=== PATIENT | male | born 1950 | race Caucasian/White ===

== ENCOUNTER 2019-04-23 10:14 | Inpatient (IN) | payer OTHER ==
[2019-04-23] VITALS (8 sets, daily range): BP systolic 110–131; BP diastolic 63–71
[~2019-04-23] VITALS: Ht 172.7 cm; Wt 83.7 kg
[2019-04-23 11:05] LABS: BASO % 0.4 % (0.0-1.0); EOS # 0.2 10*3/uL (0.0-0.4); HEMATOCRIT 43.2 % (42.0-52.0); HEMOGLOBIN 13.8 g/dl (14.0-18.0); LYMPH # 1.9 10*3/uL (1.3-4.4); LYMPH % 23.7 % (27.0-41.0); MEAN CELL VOLUME 92.5 fl (80.0-94.0); MEAN CORPUSCULAR HGB 29.6 pg (27.0-31.0); MEAN CORPUSCULAR HGB CONC 31.9 g/dl (33.0-37.0); MEAN PLATELET VOLUME 10.5 fl (9.6-12.3); MONO # 0.6 10*3/uL (0.1-1.0); NEUT # 5.2 10*3/uL (2.3-7.9); NEUT % 66.6 % (47.0-73.0); PLATELET COUNT AUTOMATED 217 10*3/uL (130-400); RED BLOOD COUNT 4.67 10*6/uL (4.50-5.90); WHITE BLOOD COUNT 7.8 10*3/uL (4.8-10.8)
[2019-04-23 11:15] LABS: ACT PARTIAL THROMBO TIME 29.6 SECONDS (20.0-32.1); INTERNATIONAL NORM RATIO 0.9 (2.0-3.5)
[2019-04-23 11:21] LABS: ALBUMIN 3.4 gm/dl (3.1-4.5); BUN 16 mg/dl (7-24); CHLORIDE 112 mmol/L (98-107); POTASSIUM 4.9 mmol/L (3.5-5.1); SGOT/AST 10 IU/L (3-35); SODIUM 144 mmol/L (136-145); TOTAL PROTEIN 6.7 gm/dL (6.4-8.2)
[2019-04-23 11:30] LABS: ALKALINE PHOSPHATASE 103 U/L (45-117); CREATININE 0.95 mg/dL (0.70-1.30); SGPT/ALT 20 U/L (12-78)
[2019-04-23 11:31] LABS: TROPONIN I < 0.015 ng/ml (<0.045)
--- NOTE | 2019-04-23 12:39 | NUR ---
SPOKE WITH PATIENT AND HIS SPOUSE TO LAB RESULTS SO FAR AND X-RAY RESULTS AND EXPLAINED TROPONIN RESULTS AND NEED FOR REPEAT IN APROX 1 HOUR AND THAT A 3RD TROPONIN MAY BE NEEDED 3 HOURS AFTER THAT DEPENDING ON PCP AND RESULTS PT GIVEN PILLOW AND FAMILY HAS NO OTHER QUESTIONS OR REQUESTS
--- NOTE | 2019-04-23 15:10 | NUR ---
'S OFFICE CALLED REGARDING CONSULT.
--- NOTE | 2019-04-23 15:10 | NUR ---
CCA 69, admitted to 5E, under the services of NGUYEN Samson DO with a diagnosis of CHEST PAIN. Chief complaint is CHEST PAIN. Patient arrived via ambulance from ER. Monitor applied. Initial assessment completed. Vital signs taken and recorded. NGUYEN SAMSON DO notified of admission to the unit. Orders received. See assessment for past medical history, medications and allergies. Patient and/or family oriented to unit. [address] visitation policy reviewed. Clothing/patient valuable form completed. CORI JANE.
--- NOTE | 2019-04-23 15:10 | NUR ---
PATIENT WAS TAKEN TO 5TH FLOOR BY THIS NURSE. BEDSIDE REPORT GIVEN TO CORI LONGO. NO CHANGE IN PATIENT STATUS.
--- NOTE | 2019-04-23 15:49 | NUR ---
IN TO SEE PATIENT.
--- NOTE | 2019-04-23 15:57 | NUR ---
[facility]ED [facility]ARDING [facility]. WAITING FOR FAXED LIST OF MEDS.
--- NOTE | 2019-04-23 17:06 | NUR ---
SPOKE WITH [facility] REGARDING [facility]. NEW POLICY IS TO FAX CONSENT FOR MEDS. CONSENT FAXED HERE AND OBTAINED PATIENTS SIGNATURE. ATTEMPTED TO FAX AUTHORIZATION [facility] TO [facility] AND FAX NOT GOING THROUGH. [facility] INFORMED AND STATES THE FAX MACHINE IS WORKING PROPERLY. WILL CONTINUE TO TRY. WAITING FOR FAXED LIST OF MEDS.
--- NOTE | 2019-04-23 17:10 | NUR ---
ATTEMPTED TO REACH PATIENT'S REGARDING HOME MED LIST. NO ANSWER AT THIS TIME. WILL TRY AGAIN.
--- NOTE | 2019-04-23 19:07 | NUR ---
AUTHORIZATION FOR MEDS FINALLY WENT THROUGH TO THE [facility]. AWAITING FAXED LIST OF MEDS.
--- NOTE | 2019-04-23 19:08 | NUR ---
24 HR CHART CHECK COMPLETE.
[2019-04-24] VITALS: BP 105/51
[2019-04-24 06:20] LABS: HEMATOCRIT 43.9 % (42.0-52.0); HEMOGLOBIN 14.1 g/dl (14.0-18.0); WHITE BLOOD COUNT 6.8 10*3/uL (4.8-10.8)
[2019-04-24 06:21] LABS: BASO % 0.4 % (0.0-1.0); EOS # 0.2 10*3/uL (0.0-0.4); EOS % 2.8 % (1.0-4.0); LYMPH # 1.9 10*3/uL (1.3-4.4); LYMPH % 27.8 % (27.0-41.0); MEAN CELL VOLUME 91.5 fl (80.0-94.0); MEAN CORPUSCULAR HGB 29.4 pg (27.0-31.0); MEAN CORPUSCULAR HGB CONC 32.1 g/dl (33.0-37.0); MEAN PLATELET VOLUME 10.5 fl (9.6-12.3); MONO # 0.6 10*3/uL (0.1-1.0); MONO % 8.2 % (3.0-9.0); NEUT # 4.1 10*3/uL (2.3-7.9); NEUT % 60.5 % (47.0-73.0); PLATELET COUNT AUTOMATED 232 10*3/uL (130-400); RED CELL DISTRI WIDTH 12.8 % (0-14.5)
[2019-04-24 06:31] LABS: ACT PARTIAL THROMBO TIME 29.9 SECONDS (20.0-32.1); INTERNATIONAL NORM RATIO 0.9 (2.0-3.5)
[2019-04-24 06:41] LABS: BUN 15 mg/dl (7-24); CHLORIDE 110 mmol/L (98-107); CHOLESTEROL 123 mg/dL (<200); CREATININE 0.86 mg/dL (0.70-1.30); FREE T4 2.29 ng/dl (0.76-1.46); HDL CHOLESTEROL 25 mg/dl (40-60); LDL CHOLESTEROL 56 mg/dL (9-159); PHOSPHOROUS 3.4 mg/dL (2.5-4.9); POTASSIUM 4.2 mmol/L (3.5-5.1); SODIUM 144 mmol/L (136-145); TRIGLYCERIDES 211 mg/dl (<150); VLDL CHOLESTEROL 42 mg/dL (6-40)
[2019-04-24 07:48] LABS: VITAMIN D, 25-HYDROXY 49.3 ng/mL (30-100)
--- NOTE | 2019-04-24 09:00 | NUR ---
INFORMED CONSENT OBTAINED FOR A LEXISCAN STRESS TEST WITH DR. JHAVERI. RESTING EKG NSR WITH A HT RT OF 73, AND BP OF 102/62. BREATH SOUNDS CLEAR RAHEEL, WIH A SPO2 OF 95% VIA RA. COMPLETED OME MINUTE OF A LEXISCAN PROTOCOL RECEIVING LEXISCAN O.4 MG OVER 10 SECONDS, C/O BEING "LIGHTHEADED" THAT WAS RELIEVED IN RECOVERY. HAD A PEAK HT RT OF 113, WITH A BP OF 92/60. LAST RECOVERY HT RT OF 105, WITH A BP OF 100/60. AWAITING NUCLEAR IMAGING IN STABLE CONDITION.
--- NOTE | 2019-04-24 09:39 | NUR ---
Shift chart check completed.
--- NOTE | 2019-04-24 09:42 | NUR ---
PT OFF OF FLOOR AT THIS TIME.
--- NOTE | 2019-04-24 10:03 | NUR ---
Patient not available for echo at this time.
--- NOTE | 2019-04-24 11:13 | NUR ---
Asphalt Mixer in to talk to patient. Patient states lives at HOME with . There are NO steps in the home. Physician: [facility], STATES GET[facility] ALL [facility]S [facility] Home health services: NONE Patient's level of ADLs: INDEPENDENT Patient has working utilities: YES DME: CPAP THROUGH [facility] Follow-up physician's appointment after d/c: WILL BE MADE BY HOSPITALIST NURSE DIRECTOR ON DISCHARGE Does patient want to access PORTAL?: NO Discharge plan PT STATES HE LIVES AT HOME WITH HIS AND IS INDPENDENT IN HIS CARE. DENIES HE WILL HAVE ANY NEEDS ON DISCHARGE. STATES HE WILL RETURN HOME WITH . WILL CONTINUE TO FOLLOW. STATES HE WILL HAVE A RIDE HOME. AVINASH PEREZ
--- NOTE | 2019-04-24 11:30 | NUR ---
PT RETURNS FROM STRESS TEST. LUNCH ORDERED AT THIS TIME. PT DENIES ANY DISTRESS. RESPIRATIONS EASY AND UNLABORED ON ROOM AIR. ALL NEEDS ARE CURRENTLY MET.CALL LIGHT IN REACH.
[2019-04-24 12:00] VITALS: BP 120/63
--- NOTE | 2019-04-24 12:00 | NUR ---
PT STATES THAT HE DOES NOT KNOW HIS HOME MEDICATIONS. FAX RECEIVED FROM [facility] REQUESTING A NEW FAX TO THEIR FACILITY IN ORDER TO RECEIVE A COPY OF PATIENTS HOME MEDICATIONS. WILL UPDATE MED REC WHEN APPROPRIATE INFORMATION IS AVAILABLE.
[2019-04-24 12:06] VITALS: BP 110/62
[2019-04-24] MEDS ORDERED: VITAMIN B121000 MC1 PO (14:04)
[2019-04-24] MEDS ORDERED: ZYLOPRIM300 MG PO (14:53)
[2019-04-24] MEDS ORDERED: PROAIR HFA8.5 GM INH (15:07)
[2019-04-24] MEDS ORDERED: ABILIFY20 MG PO (15:08)
[2019-04-24] MEDS ORDERED: ASPIRIN ADULT L81 M2 PO (15:08)
[2019-04-24] MEDS ORDERED: LUBRICANT EYE1 EACH OP (15:09)
[2019-04-24] MEDS ORDERED: VITAMIN D325 MC1 PO (15:10)
[2019-04-24] MEDS ORDERED: DICLOFENAC SOD2.5 M1 T (15:11)
[2019-04-24] MEDS ORDERED: COLACE100 MG PO (15:12)
[2019-04-24] MEDS ORDERED: IMDUR SA30 MG PO (15:13)
[2019-04-24] MEDS ORDERED: FLOVENT DISKUS50 MCG NAS (15:13)
[2019-04-24] MEDS ORDERED: TOPROL XL25 MG PO (15:14)
[2019-04-24] MEDS ORDERED: GLUCOPHAGE500 M1 PO (15:14)
[2019-04-24] MEDS ORDERED: MINOCYCLINE HCL50 M1 PO (15:15)
[2019-04-24] MEDS ORDERED: [UNRECOGNIZED DRUG - OTHER] PO (15:15)
[2019-04-24] MEDS ORDERED: NORTRIPTYLINE H10 MG PO (15:16)
[2019-04-24] MEDS ORDERED: PANTOPRAZOLE SO40 MG PO (15:16)
[2019-04-24] MEDS ORDERED: METAMUCIL0.4 G1 PO (15:17)
[2019-04-24] MEDS ORDERED: PREGABALIN50 MG PO (15:17)
[2019-04-24] MEDS ORDERED: CRESTOR5 MG PO (15:18)
[2019-04-24] MEDS ORDERED: AYR SALINE MIST50 ML NAS (15:19)
--- NOTE | 2019-04-24 15:30 | NUR ---
PT MED LIST UPDATED PER PHYSICIAN REQUEST WITH MEDICATION LIST SENT BY [facility].
--- NOTE | 2019-04-24 15:40 | NUR ---
DR WEST CONFIRMS THAT PT CAN BE DISCHARGED AND CAN FOLLOW UP AT [facility] FOR ECHO.
--- NOTE | 2019-04-24 15:41 | NUR ---
Discharge instructions reviewed with patient/family. Patient receptive and verbalizes understanding. Follow-up care arranged. Written instructions given to patient/family. NILESH MCLAUGHLIN
== END 2019-04-24 15:41 | disposition home or self-care (01) | DRG 303 ==
LOC: ED 10:14 → 5E 14:12 → EDHOLD 14:12 → 5E 14:22
PROVIDERS: Emergency Medicine; Internal Medicine; ADMIT Internal Medicine
PROC: 3E073KZ Introduction of Other Diagnostic Substance into Coronary Artery, Percutaneous Approach (ICD-10-PCS; principal; 2019-04-24)
PROC: 4A02XM4 Measurement of Cardiac Total Activity, External Approach (ICD-10-PCS; principal; 2019-04-24)
DX: I25.119 Atherosclerotic heart disease of native coronary artery with unspecified angina pectoris (principal); E87.8 Other disorders of electrolyte and fluid balance, not elsewhere classified; I50.9 Heart failure, unspecified; I73.9 Peripheral vascular disease, unspecified; I11.0 Hypertensive heart disease with heart failure; E11.51 Type 2 diabetes mellitus with diabetic peripheral angiopathy without gangrene; I71.4 Abdominal aortic aneurysm, without rupture; K21.9 Gastro-esophageal reflux disease without esophagitis; E78.5 Hyperlipidemia, unspecified; G40.909 Epilepsy, unspecified, not intractable, without status epilepticus; J44.9 Chronic obstructive pulmonary disease, unspecified; E11.65 Type 2 diabetes mellitus with hyperglycemia; E66.3 Overweight; R61 Generalized hyperhidrosis; Z95.5 Presence of coronary angioplasty implant and graft; I25.2 Old myocardial infarction; Z86.73 Personal history of transient ischemic attack (TIA), and cerebral infarction without residual deficits; Z87.891 Personal history of nicotine dependence; Z83.3 Family history of diabetes mellitus; Z80.41 Family history of malignant neoplasm of ovary; Z88.0 Allergy status to penicillin; Z88.8 Allergy status to other drugs, medicaments and biological substances; Z68.28 Body mass index [BMI] 28.0-28.9, adult